=== PATIENT | female | born 1990 | race Caucasian/White ===

== ENCOUNTER 2020-08-08 04:55 | Inpatient (IN) | payer MEDICAID ==
[2020-08-08] MEDS ORDERED: Methylergonovine 0.2 MG/1 ML Amp IM PRN (05:00)
[2020-08-08] MEDS ORDERED: Nalbuphine 10 MG/1 ML Vial IVPUSH PRN (05:00)
[2020-08-08] MEDS ORDERED: Sodium Chloride 0.9% 10 ML Syringe FLUSH PRN (05:00)
[2020-08-08] MEDS ORDERED: Tranexamic Acid 1,000 MG in Sodium Chloride 0.9% 100 ML IV PRN ×2 (05:00→20:57)
[2020-08-08] MEDS ORDERED: Carboprost Tromethamine 250 MCG/1 ML Amp IM PRN ×2 (05:00→20:57)
[2020-08-08] MEDS ORDERED: Terbutaline 1 MG/ML SDV SUBCUT PRN (05:00)
[2020-08-08] MEDS ORDERED: Ondansetron 4 MG Tab.DIS PO PRN (05:00)
[2020-08-08] MEDS ORDERED: Sodium Chloride 0.9% 2.5 ML Syringe FLUSH PRN (05:00)
[2020-08-08] MEDS ORDERED: Misoprostol 200 MCG Tab PO PRN (05:00)
[2020-08-08] MEDS ORDERED: Sodium Chloride 0.9% 10 ML SDV IV PRN (05:00)
[2020-08-08] MEDS ORDERED: Lidocaine 1% 50 ML MDV INJECT PRN (05:00)
[2020-08-08] MEDS ORDERED: Water For Irrigation,Sterile 1,000 ML Container IRR PRN (05:00)
[2020-08-08] MEDS ORDERED: Oxytocin/0.9 % Sodium Chloride 30 UNIT/500 ML BAG IV SCH ×2 (05:00)
[2020-08-08] MEDS: Lactated Ringers 1,000 ML IV SCH ×3 (06:00→15:42)
[2020-08-08] MEDS ORDERED: Butorphanol 1 MG/ML SDV IVPUSH PRN (13:30)
[2020-08-08] MEDS ORDERED: Ropivacaine HCl/PF 100 ML ONE (15:19)
[2020-08-08] MEDS ORDERED: fentaNYL 100 MCG/2 ML SDV ONE (15:19)
--- NOTE | 2020-08-08 15:40 | PCM.PREANE ---
Preanesthetic Assessment - Anesthesia/Transfusion/Family Hx Anesthesia History: Prior Anesthesia Without Reaction Family History of Anesthesia Reaction: No Transfusion History: No Prior Transfusion(s) - Physical Assessment NPO Status Date: 08/08/20 NPO Status Time: 12:00 Height: 1.65 m Weight: 107.048 kg ASA Class: 2 - Lab Values: Laboratory Last Values WBC 12.84 K/uL (4.0-11.0) H 08/08/20 05:30 RBC 4.36 M/uL (4.30-5.90) 08/08/20 05:30 Hgb 13.1 g/dL (12.0-16.0) 08/08/20 05:30 Hct 39.0 % (36.0-46.0) 08/08/20 05:30 MCV 89.4 fL (80.0-98.0) 08/08/20 05:30 MCH 30.0 pg (27.0-32.0) 08/08/20 05:30 MCHC 33.6 g/dL (31.0-37.0) 08/08/20 05:30 RDW Std Deviation 42.9 fl (28.0-62.0) 08/08/20 05:30 RDW Coeff of Teresa 13 % (11.0-15.0) 08/08/20 05:30 Plt Count 321 K/uL (150-400) 08/08/20 05:30 MPV 10.20 fL (7.40-12.00) 08/08/20 05:30 Nucleated RBC % 0.0 /100WBC 08/08/20 05:30 Nucleated RBCs # 0 K/uL 08/08/20 05:30 Blood Type O POSITIVE 08/08/20 05:30 Antibody Screen NEGATIVE 08/08/20 05:30 - Allergies Allergies/Adverse Reactions: Allergies Allergy/AdvReac Type Severity Reaction Status Date / Time bee pollen Allergy Swelling Verified 08/01/20 14:47 - Acknowledgements Anesthesia Type Planned: Epidural Pt an Appropriate Candidate for the Planned Anesthesia: Yes Alternatives and Risks of Anesthesia Discussed w Pt/Guardian: Yes Pt/Guardian Understands and Agrees with Anesthesia Plan: Yes PreAnesthesia Questionnaire Cardiovascular History: Reports: Hypertension, Other (See Below) Other Cardiovascular History: Hypertension with Respiratory History: Reports: Sleep Apnea Other Respiratory History: Undiagnosed Sleep Apnea SLAT TWISTER History: Reports: , Other (See Below) Other OB/BYN History: Leep procedure 2017 Neurological History: Reports: Migraines Psychiatric History: Reports: Anxiety, Depression, OCD Endocrine/Metabolic History: Reports: Obesity/BMI 30+ Hematologic History: Reports: Anemia Oncologic (Cancer) History: Reports: Cervix, Other (See Below) Other Oncologic History: "precancerous cervical cancer" - Infectious Disease History Infectious Disease History: Reports: Chicken Pox, Human Papilloma Virus (HPV) - Past Surgical History Cardiovascular Surgical History: Reports: None Respiratory Surgical History: Reports: None Endocrine Surgical History: Reports: None Neurological Surgical History: Reports: None Oncologic Surgical History: Reports: Other (See Below) Other Oncologic Surgeries/Procedures: Leep procedure 2017 - SUBSTANCE USE Tobacco Use Status *Q: Never Tobacco User Second Hand Smoke Exposure: No Recreational Drug Use History: No - HOME MEDS Home Medications: Home Meds Calcium Carbonate [Tums] 500 mg PO 07/24/20 [History] ursodioL [Ursodiol] 300 mg PO 07/24/20 [History] Pnv No.95/Ferrous Fum/Folic AC [ Tablet] 1 tab PO DAILY 08/01/20 [History] - CURRENT (IN HOUSE) MEDS Current Meds: Current Medications Butorphanol Tartrate (Stadol) 1 mg IVPUSH Q1H PRN PRN Reason: Pain Last Admin: 08/08/20 13:44 Dose: 1 mg Documented by: Carboprost Tromethamine (Hemabate Ds) 250 mcg IM ASDIRECTED PRN PRN Reason: Post Hemorrhage Oxytocin/Sodium Chloride (Oxytocin 30 Unit/500 Ml-Ns) 30 unit in 500 mls @ 999 mls/hr IV TITRATE AKBAR Tranexamic Acid 1,000 mg/ (Sodium Chloride) 110 mls @ 660 mls/hr IV ONETIME PRN PRN Reason: Bleeding Oxytocin/Sodium Chloride (Oxytocin 30 Unit/500 Ml-Ns) 30 unit in 500 mls @ 2 mls/hr IV TITRATE AKBAR; Protocol Last Titration: 08/08/20 15:22 Dose: 20 munits/min, 20 mls/hr Documented by: Lactated Ringer's (Ringers, Lactated) 1,000 mls @ 150 mls/hr IV ASDIRECTED AKBAR Last Infusion: 08/08/20 15:00 Dose: 999 mls/hr Documented by: Lidocaine HCl (Xylocaine 1%) 50 ml INJECT ONETIME PRN PRN Reason: Laceration repair Methylergonovine Maleate (Methergine) 0.2 mg IM ASDIRECTED PRN PRN Reason: Post Hemorrhage Misoprostol (Cytotec) 200 mcg PO ONETIME PRN PRN Reason: Post Hemorrhage Nalbuphine HCl (Nubain) 10 mg IVPUSH Q1H PRN PRN Reason: Pain (severe 7-10) Ondansetron HCl (Zofran Odt) 4 mg PO Q4H PRN PRN Reason: Nausea/Vomiting Sodium Chloride (Saline Flush) 10 ml FLUSH ASDIRECTED PRN PRN Reason: Keep Vein Open Sodium Chloride (Saline Flush) 2.5 ml FLUSH ASDIRECTED PRN PRN Reason: Keep Vein Open Sodium Chloride (Normal Saline) 10 ml IV ASDIRECTED PRN PRN Reason: IV Use Sterile Water (Sterile Water For Irrigation) 1,000 ml IRR ASDIRECTED PRN PRN Reason: delivery Terbutaline Sulfate (Brethine) 0.25 mg SUBCUT ASDIRECTED PRN PRN Reason: Tacysystole Discontinued Medications Fentanyl (Sublimaze) Confirm Administered Dose 100 mcg .ROUTE .STK-MED ONE Stop: 08/08/20 15:20 Ropivacaine (Naropin 0.2%) Confirm Administered Dose 100 mls @ as directed .ROUTE .STK-MED ONE Stop: 08/08/20 15:20
--- NOTE | 2020-08-08 15:43 | PCM.PRNOTE ---
- Free Text/Narrative Note: Anes NOte Patient requests epidural for L&D. Sitting position, level L3-L4 midline approach. Sterile technique. Chloraprep scrub to lumbar area. Sterile fenestrated drape applied. Epidural space easily acheived single attempt using DARRIN technique. DARRIN at 4 cm. Cath threaded 5 cm with ease. Cath secured with sterile clear adhesive dressing. 1534 Test 3 cc 1.5% lido with epi negative. 1537 LOad 10 cc 0.2% ropivicaine with 1 mcg cc fentanyl in slow divided doses 1543 Pump started wtih 90 cc same solution. Rate is 8 cc hr wiht 6 cc q 20 min prn bolus. Tomeka well. Time with patient [id number] Etienne Gordon CRNA
--- NOTE | 2020-08-08 20:55 | PCM.DEL ---
L & D Note - General Info Date of Service: 08/08/20 Mother's Due Date: 08/29/20 - Delivery Note Labor: Induced by ARM, Induced by Oxytocin Delivery Outcome: Livebirth Infant Delivery Method: Spontaneous Vaginal Delivery-Single Infant Delivery Mode: Spontaneous Presentation: Right Occiput Anterior (EMMA) Nuchal Cord: None Prep: Other Anesthesia Type: Epidural Amniotic Fluid Description: Clear Laceration: 2nd Degree Suture type: Vicryl Suture size: 3-0 Placenta: Intact, Spontaneous Cord: 3 Vessels Estimated Blood Loss: 400 Resuscitation Needed: No Score 1 min: 8 Score 5 min: 9 - General Info Date of Service: 08/08/20 - Patient Data Weight - Most Recent: 107.048 kg Lab Results Last 24 Hours: Laboratory Results - last 24 hr 08/08/20 08/08/20 Range/Units 05:30 05:30 WBC 12.84 H (4.0-11.0) K/uL RBC 4.36 (4.30-5.90) M/uL Hgb 13.1 (12.0-16.0) g/dL Hct 39.0 (36.0-46.0) % MCV 89.4 (80.0-98.0) fL MCH 30.0 (27.0-32.0) pg MCHC 33.6 (31.0-37.0) g/dL RDW Std Deviation 42.9 (28.0-62.0) fl RDW Coeff of Teresa 13 (11.0-15.0) % Plt Count 321 (150-400) K/uL MPV 10.20 (7.40-12.00) fL Nucleated RBC % 0.0 /100WBC Nucleated RBCs # 0 K/uL Blood Type O POSITIVE Antibody Screen NEGATIVE Med Orders - Current: Current Medications Butorphanol Tartrate (Stadol) 1 mg IVPUSH Q1H PRN PRN Reason: Pain Last Admin: 08/08/20 13:44 Dose: 1 mg Documented by: Carboprost Tromethamine (Hemabate Ds) 250 mcg IM ASDIRECTED PRN PRN Reason: Post Hemorrhage Oxytocin/Sodium Chloride (Oxytocin 30 Unit/500 Ml-Ns) 30 unit in 500 mls @ 999 mls/hr IV TITRATE AKBAR Tranexamic Acid 1,000 mg/ (Sodium Chloride) 110 mls @ 660 mls/hr IV ONETIME PRN PRN Reason: Bleeding Oxytocin/Sodium Chloride (Oxytocin 30 Unit/500 Ml-Ns) 30 unit in 500 mls @ 2 mls/hr IV TITRATE [facility]; Protocol Last Titration: 08/08/20 17:00 Dose: 22 munits/min, 22 mls/hr Documented by: Lactated Ringer's (Ringers, Lactated) 1,000 mls @ 150 mls/hr IV ASDIRECTED AKBAR Last Admin: 08/08/20 15:42 Dose: 150 mls/hr Documented by: Lidocaine HCl (Xylocaine 1%) 50 ml INJECT ONETIME PRN PRN Reason: Laceration repair Methylergonovine Maleate (Methergine) 0.2 mg IM ASDIRECTED PRN PRN Reason: Post Hemorrhage Misoprostol (Cytotec) 200 mcg PO ONETIME PRN PRN Reason: Post Hemorrhage Nalbuphine HCl (Nubain) 10 mg IVPUSH Q1H PRN PRN Reason: Pain (severe 7-10) Ondansetron HCl (Zofran Odt) 4 mg PO Q4H PRN PRN Reason: Nausea/Vomiting Sodium Chloride (Saline Flush) 10 ml FLUSH ASDIRECTED PRN PRN Reason: Keep Vein Open Sodium Chloride (Saline Flush) 2.5 ml FLUSH ASDIRECTED PRN PRN Reason: Keep Vein Open Sodium Chloride (Normal Saline) 10 ml IV ASDIRECTED PRN PRN Reason: IV Use Sterile Water (Sterile Water For Irrigation) 1,000 ml IRR ASDIRECTED PRN PRN Reason: delivery Terbutaline Sulfate (Brethine) 0.25 mg SUBCUT ASDIRECTED PRN PRN Reason: Tacysystole Discontinued Medications Fentanyl (Sublimaze) Confirm Administered Dose 100 mcg .ROUTE .STK-MED ONE Stop: 08/08/20 15:20 Last Admin: 08/08/20 19:15 Dose: Not Given Documented by: Ropivacaine (Naropin 0.2%) Confirm Administered Dose 100 mls @ as directed .ROUTE .STK-MED ONE Stop: 08/08/20 15:20 Last Admin: 08/08/20 19:15 Dose: Not Given Documented by: - Problem List & Annotations (1) Gestational hypertension without significant proteinuria, affecting childbirth SNOMED Code(s): 39019196, 851470938 Code(s): O13.4 - GESTATNL HTN WITHOUT SIGNIFICANT PROTEIN, COMP CHILDBIRTH Status: Acute Current Visit: Yes - Problem List Review Problem List Initiated/Reviewed/Updated: Yes
[2020-08-08] MEDS ORDERED: Acetaminophen 500 MG Tab PO PRN ×2 (20:57)
[2020-08-08] MEDS ORDERED: Bisacodyl 10 MG Supp RECTAL PRN (20:57)
[2020-08-08] MEDS ORDERED: Witch Hazel Medicated Pads 40/Jar TOP PRN (20:57)
[2020-08-08] MEDS ORDERED: oxyCODONE 5 MG Tab PO PRN (20:57)
[2020-08-08] MEDS ORDERED: Docusate Sodium 100 MG Cap PO PRN (20:57)
[2020-08-08] MEDS ORDERED: Benzocaine/Menthol 20%-0.5% Spray 78 GM Cannister TOP PRN (20:57)
[2020-08-08] MEDS ORDERED: Ibuprofen 400 MG Tab PO PRN (20:57)
[2020-08-08] MEDS ORDERED: Lanolin 100% Cream 7 GM Tube TOP PRN (20:57)
--- NOTE | 2020-08-09 01:49 | OR ---
SURGEON: Tarsha Ramsey M.D. DATE OF PROCEDURE: 08/08/2020 PREOPERATIVE DIAGNOSES: 1. A 37-week intrauterine . 2. Gestational hypertension. POSTOPERATIVE DIAGNOSES: 1. A 37-week intrauterine . 2. Gestational hypertension. PROCEDURES: 1. Pitocin induction of labor with artificial rupture of membranes. 2. Term spontaneous vaginal delivery. 3. Repair of a second-degree laceration. PRIMARY SURGEON: Tarsha Ramsey M.D. ANESTHESIA: Epidural. ESTIMATED BLOOD LOSS: 400 mL. FINDINGS: Liveborn female, scores 8 and 9, weight is pending at the time of dictation. Placenta spontaneous, Schultze intact, with 3 vessels, with a note made of an accessory lobe of the placenta. COMPLICATIONS: None known. Mother and baby are in LDR in good condition. BRIEF HISTORY: This is a 29-year-old female, G1, P0; presents at 37 weeks' gestation for induction of labor due to elevated blood pressures at term. She was initially 3 to 4 cm dilated. She was started on Pitocin. Artificial rupture of membranes was performed. She was known to be group B strep negative. She received an epidural for pain control, and she progressed to complete. DESCRIPTION OF PROCEDURE: With the patient in dorsal lithotomy position, the patient pushed over a 45- minute time period to 5+ station, at which time the head was delivered spontaneously and atraumatically over the perineum with support with subsequent delivery of the 's shoulders and body without any difficulty. The infant was bulb suctioned by nose and mouth, and after the cord had ceased to pulsate, it was doubly clamped and cut. The infant was handed to the mother in the presence of the nurse attending the delivery. The infant is a liveborn female, scores of 8 and 9, weight is pending. Cord blood was collected for cord ABGs as well as routine cord blood sampling. Pitocin was initiated after delivery of the infant to assist with delivery of the placenta, which was delivered spontaneously, Schultze intact, with 3 vessels, with note made of an accessory lobe. Upon inspection of the pelvis and perineum, there were no periurethral, vaginal sidewall, cervical, or rectal lacerations. There was a small second-degree perineal laceration that was repaired with a running locked suture of 3-0 Vicryl for the vaginal mucosa, a deep running suture of the same for the perineum, and a subcuticular suture of the same for the skin. Final sponge, needle, and instrument counts were correct. There were no known complications. Mother and baby are in LDR in good condition. ANITHA CHU /[id number]
[2020-08-09] MEDS: Ibuprofen 800 MG Tab PO PRN ×2 (02:59→20:53)
--- NOTE | 2020-08-09 07:30 | PCM48HPAN ---
Post Anesthesia Note - EVALUATION WITHIN 48HRS OF ANESTHETIC Vital Signs in Normal Range: Yes Patient Participated in Evaluation: Yes Respiratory Function Stable: Yes Airway Patent: Yes Cardiovascular Function Stable: Yes Hydration Status Stable: Yes Pain Control Satisfactory: Yes Nausea and Vomiting Control Satisfactory: Yes Mental Status Recovered: Yes Vital Signs: Last Vital Signs Temp 36.7 C 08/09/20 04:49 Pulse 86 08/09/20 04:49 Resp 16 08/09/20 04:49 BP 130/79 08/09/20 04:49 Pulse Ox 97 08/09/20 04:49
[2020-08-09] MEDS ORDERED: Furosemide 20 MG/2 ML VIAL IVPUSH ONE (11:26)
--- NOTE | 2020-08-09 11:52 | PCM.PNPP ---
- General Info Date of Service: 08/09/20 Subjective Update: Denies headache, visual changes or other symptoms Functional Status: Reports: Pain Controlled, Tolerating Diet, Ambulating, Urinating - Review of Systems General: Reports: No Symptoms HEENT: Reports: No Symptoms Pulmonary: Reports: No Symptoms Cardiovascular: Reports: No Symptoms Gastrointestinal: Reports: No Symptoms Genitourinary: Reports: No Symptoms Musculoskeletal: Reports: No Symptoms Skin: Reports: No Symptoms Neurological: Reports: No Symptoms Psychiatric: Reports: No Symptoms - Patient Data Vital Signs - Most Recent: Last Vital Signs Temp 36.7 C 08/09/20 07:34 Pulse 88 08/09/20 07:34 Resp 17 08/09/20 07:34 BP 133/87 08/09/20 08:43 Pulse Ox 98 08/09/20 07:34 Weight - Most Recent: 107.048 kg Lab Results - Last 24 Hours: Laboratory Results - last 24 hr 08/08/20 08/09/20 Range/Units 20:35 05:08 Hgb 11.2 L (12.0-16.0) g/dL Hct 34.4 L (36.0-46.0) % Cord ABG pH 7.196 (7.18-7.38) Cord ABG Base Excess -8 (-10--2) Cord VBG pH 7.274 (7.25-7.45) Cord VBG Base Excess -9 (-10--2) Med Orders - Current: Current Medications Acetaminophen (Tylenol Extra Strength) 500 mg PO Q4H PRN PRN Reason: Pain Acetaminophen (Tylenol Extra Strength) 1,000 mg PO Q4H PRN PRN Reason: Pain Benzocaine/Menthol (Dermoplast Pain Relief 20%-0.5% [place]ce) 78 gm TOP ASDIRECTED PRN PRN Reason: Perineal Comfort Measure Last Admin: 08/08/20 22:31 Dose: 78 gm Documented by: Bisacodyl (Dulcolax) 10 mg RECTAL ONETIME PRN PRN Reason: Constipation Carboprost Tromethamine (Hemabate Ds) 250 mcg IM ASDIRECTED PRN PRN Reason: Excessive vaginal bleeding Docusate Sodium (Colace) 100 mg PO BID PRN PRN Reason: Constipation Emollient Ointment (Lansinoh Hpa) 0 gm TOP ASDIRECTED PRN PRN Reason: Sore Nipples Furosemide (Lasix) 10 mg IVPUSH NOW ONE Stop: 08/09/20 11:27 Tranexamic Acid 1,000 mg/ (Sodium Chloride) 110 mls @ 660 mls/hr IV ONETIME PRN PRN Reason: Bleeding Ibuprofen (Motrin) 400 mg PO Q4H PRN PRN Reason: Pain Ibuprofen (Motrin) 800 mg PO Q6H PRN PRN Reason: Pain Last Admin: 08/09/20 02:59 Dose: 800 mg Documented by: Oxycodone HCl (Oxycodone) 5 mg PO Q2H PRN PRN Reason: Pain Witch Jose (Tucks) 1 pad TOP ASDIRECTED PRN PRN Reason: comfort care Last Admin: 08/08/20 22:31 Dose: 1 tub Documented by: Discontinued Medications Butorphanol Tartrate (Stadol) 1 mg IVPUSH Q1H PRN PRN Reason: Pain Last Admin: 08/08/20 13:44 Dose: 1 mg Documented by: Carboprost Tromethamine (Hemabate Ds) 250 mcg IM ASDIRECTED PRN PRN Reason: Post Hemorrhage Fentanyl (Sublimaze) Confirm Administered Dose 100 mcg .ROUTE .STK-MED ONE Stop: 08/08/20 15:20 Last Admin: 08/08/20 19:15 Dose: Not Given Documented by: Oxytocin/Sodium Chloride (Oxytocin 30 Unit/500 Ml-Ns) 30 unit in 500 mls @ 999 mls/hr IV TITRATE AKBAR Last Admin: 08/08/20 20:51 Dose: 999 mls/hr Documented by: Tranexamic Acid 1,000 mg/ (Sodium Chloride) 110 mls @ 660 mls/hr IV ONETIME PRN PRN Reason: Bleeding Oxytocin/Sodium Chloride (Oxytocin 30 Unit/500 Ml-Ns) 30 unit in 500 mls @ 2 mls/hr IV TITRATE AKBAR; Protocol Last Titration: 08/08/20 20:29 Dose: 999 munits/min, 999 mls/hr Documented by: Lactated Ringer's (Ringers, Lactated) 1,000 mls @ 150 mls/hr IV ASDIRECTED AKBAR Last Admin: 08/08/20 15:42 Dose: 150 mls/hr Documented by: Ropivacaine (Naropin 0.2%) Confirm Administered Dose 100 mls @ as directed .ROUTE .STK-MED ONE Stop: 08/08/20 15:20 Last Admin: 08/08/20 19:15 Dose: Not Given Documented by: Lidocaine HCl (Xylocaine 1%) 50 ml INJECT ONETIME PRN PRN Reason: Laceration repair Methylergonovine Maleate (Methergine) 0.2 mg IM ASDIRECTED PRN PRN Reason: Post Hemorrhage Misoprostol (Cytotec) 200 mcg PO ONETIME PRN PRN Reason: Post Hemorrhage Nalbuphine HCl (Nubain) 10 mg IVPUSH Q1H PRN PRN Reason: Pain (severe 7-10) Ondansetron HCl (Zofran Odt) 4 mg PO Q4H PRN PRN Reason: Nausea/Vomiting Sodium Chloride (Saline Flush) 10 ml FLUSH ASDIRECTED PRN PRN Reason: Keep Vein Open Sodium Chloride (Saline Flush) 2.5 ml FLUSH ASDIRECTED PRN PRN Reason: Keep Vein Open Sodium Chloride (Normal Saline) 10 ml IV ASDIRECTED PRN PRN Reason: IV Use Sterile Water (Sterile Water For Irrigation) 1,000 ml IRR ASDIRECTED PRN PRN Reason: delivery Terbutaline Sulfate (Brethine) 0.25 mg SUBCUT ASDIRECTED PRN PRN Reason: Tacysystole - Interaction Disposition, : [place] in Room with Family Infant Interaction: Holding Infant Infant Feeding: Breastfed ; Nursed Well Support Person: Significant Other - Recovery Exam Fundal Tone: Firm Fundal Level: 1 Fingerbreadths Below Umbilicus Fundal Placement: Midline Lochia Amount: Scant, Small Lochia Color: Rubra/Red Perineum Description: Other (see below) Other Perinuem Description: 2nd degree laceration. Episiotomy/Laceration: Approximated Bladder Status: Voiding Urinary Elimination: Voided - Exam General: Alert, Oriented Neck: Supple Lungs: Normal Respiratory Effort GI/Abdominal Exam: Soft, Non-Tender, No Distention Extremities: Non-Tender, Normal Capillary Refill. No: No Pedal Edema (3+ equal bilateral) Wound/Incisions: Healing Well Psy/Mental Status: Alert, Normal Affect, Normal Mood - Problem List & Annotations (1) Gestational hypertension without significant proteinuria, affecting childbirth SNOMED Code(s): 05930291, [id number] Code(s): O13.4 - GESTATNL HTN WITHOUT SIGNIFICANT PROTEIN, COMP CHILDBIRTH Status: Acute Current Visit: Yes - Problem List Review Problem List Initiated/Reviewed/Updated: Yes - My Orders Last 24 Hours: My Active Orders 08/08/20 Dinner Regular Diet [DIET] 08/08/20 20:57 Patient Status [ADT] Routine May Shower [RC] ASDIRECTED Up ad Britt [RC] ASDIRECTED Vital Signs [RC] PER UNIT ROUTINE Acetaminophen [Tylenol Extra Strength] 1,000 mg PO Q4H PRN Acetaminophen [Tylenol Extra Strength] 500 mg PO Q4H PRN Benzocaine/Menthol [Dermoplast Pain Relief 20%-0.5% Fordyce] 78 gm TOP ASDIRECTED PRN Carboprost Tromethamine [Hemabate DS] 250 mcg IM ASDIRECTED PRN Docusate Sodium [Colace] 100 mg PO BID PRN Ibuprofen [Motrin] 400 mg PO Q4H PRN Ibuprofen [Motrin] 800 mg PO Q6H PRN Lanolin [Lansinoh HPA] See Dose Instructions TOP ASDIRECTED PRN Tranexamic Acid [Cyklokapron] 1,000 mg Sodium Chloride 0.9% [Normal Saline] 100 ml IV ONETIME bisacodyL [Dulcolax] 10 mg RECTAL ONETIME PRN oxyCODONE 5 mg PO Q2H PRN witch Jose [Tucks] 1 pad TOP ASDIRECTED PRN Assess Lochia [WOMSER] Per Unit Routine Assess Uterine Involution [WOMSER] Per Unit Routine Perineal Care [OM.PC] Per Unit Routine Peripheral IV Discontinue [OM.PC] Routine Resuscitation Status Routine 08/09/20 11:26 Furosemide [Lasix] 10 mg IVPUSH NOW ONE - Assessment Assessment:: day #1 after , stable minimal lochia. 3+ pedal edema bilaterally, borderline BP, will give single dose of lasix. Consider labetalol if BP remain elevated, parameters provided to nurse.
[2020-08-09] MEDS ORDERED: Furosemide 20 MG in Sodium Chloride 0.9% 50 ML IV ONE (12:00)
--- NOTE | 2020-08-10 09:09 | PCM.PNPP ---
- General Info Date of Service: 08/10/20 Subjective Update: PPD#2 after , BP improved, now somewhat worsened, swelling improved significantly, minimal lochia, denies headache or visual changes. Planning to go home today. Functional Status: Reports: Pain Controlled - Review of Systems General: Reports: No Symptoms HEENT: Reports: No Symptoms Pulmonary: Reports: No Symptoms Cardiovascular: Reports: Edema Gastrointestinal: Reports: No Symptoms Genitourinary: Reports: No Symptoms Musculoskeletal: Reports: No Symptoms Skin: Reports: No Symptoms Neurological: Reports: No Symptoms Psychiatric: Reports: No Symptoms - General Info Date of Service: 08/10/20 - Patient Data Vital Signs - Most Recent: Last Vital Signs Temp 36.3 C 08/10/20 06:07 Pulse 90 08/10/20 06:07 Resp 16 08/10/20 06:07 BP 142/93 H 08/10/20 06:07 Pulse Ox 98 08/10/20 06:07 Weight - Most Recent: 107.048 kg Med Orders - Current: Current Medications Acetaminophen (Tylenol Extra Strength) 500 mg PO Q4H PRN PRN Reason: Pain Acetaminophen (Tylenol Extra Strength) 1,000 mg PO Q4H PRN PRN Reason: Pain Benzocaine/Menthol (Dermoplast Pain Relief 20%-0.5% [place]) 78 gm TOP ASDIRECTED PRN PRN Reason: Perineal Comfort Measure Last Admin: 08/08/20 22:31 Dose: 78 gm Documented by: Bisacodyl (Dulcolax) 10 mg RECTAL ONETIME PRN PRN Reason: Constipation Carboprost Tromethamine (Hemabate Ds) 250 mcg IM ASDIRECTED PRN PRN Reason: Excessive vaginal bleeding Docusate Sodium (Colace) 100 mg PO BID PRN PRN Reason: Constipation Emollient Ointment (Lansinoh Hpa) 0 gm TOP ASDIRECTED PRN PRN Reason: Sore Nipples Tranexamic Acid 1,000 mg/ (Sodium Chloride) 110 mls @ 660 mls/hr IV ONETIME PRN PRN Reason: Bleeding Ibuprofen (Motrin) 400 mg PO Q4H PRN PRN Reason: Pain Ibuprofen (Motrin) 800 mg PO Q6H PRN PRN Reason: Pain Last Admin: 08/09/20 20:53 Dose: 800 mg Documented by: Labetalol HCl (Normodyne) 100 mg PO BID AKBAR Oxycodone HCl (Oxycodone) 5 mg PO Q2H PRN PRN Reason: Pain Witch Jacqueline (Tucks) 1 pad TOP ASDIRECTED PRN PRN Reason: comfort care Last Admin: 08/08/20 22:31 Dose: 1 tub Documented by: Discontinued Medications Butorphanol Tartrate (Stadol) 1 mg IVPUSH Q1H PRN PRN Reason: Pain Last Admin: 08/08/20 13:44 Dose: 1 mg Documented by: Carboprost Tromethamine (Hemabate Ds) 250 mcg IM ASDIRECTED PRN PRN Reason: Post Hemorrhage Fentanyl (Sublimaze) Confirm Administered Dose 100 mcg .ROUTE .STK-MED ONE Stop: 08/08/20 15:20 Last Admin: 08/08/20 19:15 Dose: Not Given Documented by: Furosemide (Lasix) 10 mg IVPUSH NOW ONE Stop: 08/09/20 11:27 Last Admin: 08/09/20 16:43 Dose: Not Given Documented by: Oxytocin/Sodium Chloride (Oxytocin 30 Unit/500 Ml-Ns) 30 unit in 500 mls @ 999 mls/hr IV TITRATE AKBAR Last Admin: 08/08/20 20:51 Dose: 999 mls/hr Documented by: Tranexamic Acid 1,000 mg/ (Sodium Chloride) 110 mls @ 660 mls/hr IV ONETIME PRN PRN Reason: Bleeding Oxytocin/Sodium Chloride (Oxytocin 30 Unit/500 Ml-Ns) 30 unit in 500 mls @ 2 mls/hr IV TITRATE AKBAR; Protocol Last Titration: 08/08/20 20:29 Dose: 999 munits/min, 999 mls/hr Documented by: Lactated Ringer's (Ringers, Lactated) 1,000 mls @ 150 mls/hr IV ASDIRECTED AKBAR Last Admin: 08/08/20 15:42 Dose: 150 mls/hr Documented by: Ropivacaine (Naropin 0.2%) Confirm Administered Dose 100 mls @ as directed .ROUTE .STK-MED ONE Stop: 08/08/20 15:20 Last Admin: 08/08/20 19:15 Dose: Not Given Documented by: Furosemide 20 mg/ Sodium (Chloride) 52 mls @ 100 mls/hr IV ONETIME ONE Stop: 08/09/20 12:31 Last Admin: 08/09/20 12:37 Dose: 100 mls/hr Documented by: Lidocaine HCl (Xylocaine 1%) 50 ml INJECT ONETIME PRN PRN Reason: Laceration repair Methylergonovine Maleate (Methergine) 0.2 mg IM ASDIRECTED PRN PRN Reason: Post Hemorrhage Misoprostol (Cytotec) 200 mcg PO ONETIME PRN PRN Reason: Post Hemorrhage Nalbuphine HCl (Nubain) 10 mg IVPUSH Q1H PRN PRN Reason: Pain (severe 7-10) Ondansetron HCl (Zofran Odt) 4 mg PO Q4H PRN PRN Reason: Nausea/Vomiting Sodium Chloride (Saline Flush) 10 ml FLUSH ASDIRECTED PRN PRN Reason: Keep Vein Open Sodium Chloride (Saline Flush) 2.5 ml FLUSH ASDIRECTED PRN PRN Reason: Keep Vein Open Sodium Chloride (Normal Saline) 10 ml IV ASDIRECTED PRN PRN Reason: IV Use Sterile Water (Sterile Water For Irrigation) 1,000 ml IRR ASDIRECTED PRN PRN Reason: delivery Terbutaline Sulfate (Brethine) 0.25 mg SUBCUT ASDIRECTED PRN PRN Reason: Tacysystole - Interaction Infant Disposition, : [place] in Room with Family Infant Interaction: Holding Infant Infant Feeding: Breastfed Infant; Nursed Well Support Person: Significant Other - Recovery Exam Fundal Tone: Firm Fundal Level: 1 Fingerbreadths Below Umbilicus Fundal Placement: Midline Lochia Amount: Scant Lochia Color: Rubra/Red Perineum Description: Other (see below) Other Perinuem Description: 2nd degree laceration. Episiotomy/Laceration: Approximated Bladder Status: Voiding Urinary Elimination: Voided - Exam General: Alert, Oriented HEENT: Pupils Equal Lungs: Normal Respiratory Effort GI/Abdominal Exam: Soft, Non-Tender Extremities: Normal Inspection, Non-Tender. No: No Pedal Edema (2+ equal bilaterally) Skin: Warm, Dry, Intact Psy/Mental Status: Alert, Normal Affect, Normal Mood - Problem List & Annotations (1) Gestational hypertension without significant proteinuria, affecting childbirth SNOMED Code(s): 74882130, 443885800 Code(s): O13.4 - GESTATNL HTN WITHOUT SIGNIFICANT PROTEIN, COMP CHILDBIRTH Status: Acute Current Visit: Yes - Problem List Review Problem List Initiated/Reviewed/Updated: Yes - My Orders Last 24 Hours: My Active Orders 08/10/20 09:15 Labetalol [Normodyne] 100 mg PO BID - Assessment Assessment:: day #2 after , stable minimal lochia. BP still mildly elevated, denies symptoms. - Plan Plan:: Start labetalol, reassess BP after lunch, if improved, dismiss with follow up in 2-3 days. Discharge instructions reviewed.
[2020-08-10] MEDS ORDERED: Labetalol 100 MG Tab PO SCH (09:15)
[2020-08-10] MEDS ORDERED: Measles, Mumps & Rubella Vaccine 0.5 ML SDV SUBCUT ONE (13:53)
== END 2020-08-10 15:01 | disposition home or self-care (01) | DRG 807 ==
LOC: MW.OBCHECK 04:55 → MW.OB 04:56 → MW.OBCHECK 05:00 → OBSVTOIN 20:28 → MW.OB 22:42
PROVIDERS: ADMIT Obstetrics & Gynecology; ATTEND Obstetrics & Gynecology
PROC: 10E0XZZ Delivery of Products of Conception, External Approach (ICD-10-PCS; principal; 2020-08-08)
PROC: 0KQM0ZZ Repair Perineum Muscle, Open Approach (ICD-10-PCS; 2020-08-08)
PROC: 10907ZC Drainage of Amniotic Fluid, Therapeutic from Products of Conception, Via Natural or Artificial Opening (ICD-10-PCS; 2020-08-08)
PROC: 3E033VJ Introduction of Other Hormone into Peripheral Vein, Percutaneous Approach (ICD-10-PCS; 2020-08-08)
PROC: 3E0R3BZ Introduction of Anesthetic Agent into Spinal Canal, Percutaneous Approach (ICD-10-PCS; 2020-08-08)
PROC: 00HU33Z Insertion of Infusion Device into Spinal Canal, Percutaneous Approach (ICD-10-PCS; 2020-08-08)
DX: O13.4 Gestational [pregnancy-induced] hypertension without significant proteinuria, complicating childbirth (principal); Z37.0 Single live birth; Z3A.37 37 weeks gestation of pregnancy; O70.1 Second degree perineal laceration during delivery
CPT/HCPCS: 36415; 51702; 59025; 59409; 82803; 85014; 85018; 85027; 86592; 86850; 86900; 86901; 90471; 90707; A9270-GY; J0595; J1940; J2590; J7120

== ENCOUNTER 2021-01-05 09:23 | Emergency (ER) | payer BC, MEDICAID ==
[2021-01-05] MEDS ORDERED: Alum Hydrox/Mag Hydrox/Simeth 15 ML, Lidocaine 2% 5 ML PO ONE ×2 (09:57)
[2021-01-05] MEDS ORDERED: Dextrose 5%-Lactated Ringers 1,000 ML IV SCH (10:00)
[2021-01-05 11:20] LABS: BLOOD UREA NITROGEN,BUN 14 mg/dL (7.0-18.0); CARBON DIOXIDE,CO2 27.8 mmol/L (21.0-32.0); CHLORIDE,CL 104 mmol/L (98-107); GLUCOSE RANDOM 97 mg/dL (74-106); LIPASE 47 U/L (73-393); POTASSIUM,K 3.5 mmol/L (3.5-5.1); SODIUM,NA 139 mmol/L (136-145)
--- NOTE | 2021-01-05 11:33 | EDM.PDOC ---
ED HPI GENERAL MEDICAL PROBLEM - General Chief Complaint: Abdominal Pain Stated Complaint: NO BM FOR 2 DAYS Time Seen by Provider: 01/05/21 09:45 - History of Present Illness INITIAL COMMENTS - FREE TEXT/NARRATIVE: CHIEF COMPLAINT(S): Decreased urination HISTORY OF PRESENT ILLNESS: This is a 30-year-old woman without any past medical history who comes to the emergency department with a chief complaint of decreased urination. The patient states that symptoms 4 days ago she has been experiencing a stomach flu for which her and daughter both had. She states that she had approximately 14 hours of nausea, vomiting which is nonbloody nonbilious and diarrhea which was also nonbloody. She states that it improved and was able to tolerate food including peanut butter and jelly, cheese, juice, and water for approximately 48 hours now. She states that since that time she is having some abdominal pain throughout her abdomen which she describes as dull and sharp rated 5 out of 10. She states that it is sharp in her upper abdomen and dull in her lower abdomen without any radiation of this pain. She denies any hematuria, dysuria or pain with defecation. She denies any melena or hematochezia. She states that the diarrhea has improved but it has been sometime since she had a bowel movement. She states that she was concerned because this morning she was unable to urinate. She states that she felt the need to urinate but did not urinate. She states that she was able to urinate when getting to the emergency department. She states that because she was unable to urinate she was concerned about a urinary tract infection so she drank cranberry juice and took Azo. In regards to the abdominal pain she denies any aggravating factors or relieving factors. She denies any fevers, chills, chest pain, shortness of breath. She states that she still feels dehydrated. REVIEW OF SYSTEMS: Constitutional: Denies fever, chills. Eyes: Denies eye pain Ears, Nose, Mouth, & Throat: Denies earache Cardiovascular: Denies chest pain Respiratory: Denies shortness of breath Gastrointestinal: Positive for diffuse abdominal pain. Denies any current nausea, vomiting, diarrhea, hematochezia, melena or hematemesis Genitourinary: Positive for increased urgency and decreased urination. Denies hematuria, vaginal bleeding, vaginal discharge Skin:Denies a rash MSK: Denies joint pain Neurological: Denies blurred vision Psychiatric: Denies depression PAST MEDICAL HISTORY: As per history of present illness and as reviewed below otherwise noncontributory. SURGICAL HISTORY: As per history of present illness and as reviewed below otherwise noncontributory. LMP: 3 days ago SOCIAL HISTORY: As per history of present illness and as reviewed below otherwise noncontributory. FAMILY HISTORY: As per history of present illness and as reviewed below otherwise noncontributory. EXAMINATION OF ORGAN SYSTEMS/BODY AREAS: Constitutional: Blood pressure was 129/92, heart rate 104, respiratory rate 18 with an oxygen saturation 96% on room air. Temperature 36.5 General: Overall well-appearing woman who is in no acute distress Psychiatric: Appropriate mood and affect. Eyes: No scleral icterus or conjunctival erythema ENMT: Mildly dry mucous membranes. No pharyngeal erythema. Cardiovascular: Regular, rate, and rhythm. No gallops, murmurs, or rubs. Bilateral upper extremity pulses symmetric and intact. No peripheral edema. No JVD. Respiratory: Lungs clear to auscultation bilaterally. No wheezes, rales, or rhonchi. Gastrointestinal: Soft, nondistended, tenderness to palpation in the epigastric and left upper quadrant. No rebound or guarding. Normoactive bowel sounds Genitourinary: No suprapubic tenderness no CVA tenderness. Musculoskeletal: Normal range of motion. Skin: No lesions or abrasions. Neurological: Alert, GCS 15 MEDICAL DECISION MAKING AND COURSE IN THE ED WITH INTERPRETATION/REVIEW OF DIAGNOSTIC STUDIES: This is a 30-year-old man without any significant past medical history who comes to the emergency department with continued abdominal pain and decreased urination after a recent stomach virus who appears mildly dehydrated, is tachycardic and has tenderness palpation in the epigastric region. I do believe this is likely secondary to gastritis from the vomiting and she may be experiencing some dehydration from the viral gastroenteritis she experienced. However we will obtain a urinalysis to evaluate for any urinary tract infection given her concern. Will also obtain CBC and CMP and a lipase. We will provide the patient with 1 L of D5 LR and reevaluate. Laboratory: CBC is unremarkable. CMP is unremarkable. Lipase is normal. Urinalysis was a clean catch and was negative for leukocyte esterase, negative for nitrites, and moderate for blood. Interpretation: Hematuria likely secondary to menses On reevaluation, the patient stated that her pain had significantly improved and she feels better after the IV fluids. I did discuss with her at this time that I do believe that given that she has not been eating a normal diet given the recent nausea, vomiting, diarrhea she likely does not have any stool to have a bowel movement. I did discuss with her that as time progresses and she returns to a normal diet she should return to normal bowel movements. I discussed with her that she does not have any kidney dysfunction and that she was able to urinate here's therefore I do not believe that she is having any issues with urination. She does not have any evidence of infection. I did discuss with her that her abdominal pain is likely secondary to gastritis versus ulcers. She is informing that she does have a history of ulcers. I discussed with her at this time that I like to provide her with famotidine to be used for the next 2 weeks and then follow-up with her primary care physician. She is to return for any new or worsening symptoms. She was amenable to discharge at this time and had no further questions. DISPOSITION: The patient was discharged home in stable condition. The patient will follow up with primary care physician within 1 week CONDITION: Fair PROCEDURES: None FINAL IMPRESSION(S)/DIAGNOSES: 1. Acute abdominal pain likely secondary to gastritis All Tavera M.D. abdominal Pain Score (Numeric/FACES): 2 - Related Data Allergies Allergy/AdvReac Type Severity Reaction Status Date / Time bee pollen Allergy Swelling Verified 01/05/21 09:37 Home Meds: Home Meds Famotidine [Pepcid] 40 mg PO DAILY #14 tablet 01/05/21 [Rx] Past Medical History Cardiovascular History: Reports: Hypertension, Other (See Below) Other Cardiovascular History: Hypertension with Respiratory History: Reports: Sleep Apnea Other Respiratory History: Undiagnosed Sleep Apnea QUALITY IMPROVEMENT CONSULTANT History: Reports: , Other (See Below) Other QUALITY IMPROVEMENT CONSULTANT History: Leep procedure 2017 Neurological History: Reports: Migraines Psychiatric History: Reports: Anxiety, Depression, OCD Endocrine/Metabolic History: Reports: Obesity/BMI 30+ Hematologic History: Reports: Anemia Oncologic (Cancer) History: Reports: Cervix, Other (See Below) Other Oncologic History: "precancerous cervical cancer" - Infectious Disease History Infectious Disease History: Reports: Chicken Pox, Human Papilloma Virus (HPV) - Past Surgical History Cardiovascular Surgical History: Reports: None Respiratory Surgical History: Reports: None Endocrine Surgical History: Reports: None Neurological Surgical History: Reports: None Oncologic Surgical History: Reports: Other (See Below) Other Oncologic Surgeries/Procedures: Leep procedure 2017 Social & Family History - Family History Cardiac: Reports: Heart Failure OBGYN: Reports: Endocrine/Metabolic: Reports: Diabetes, type II - Tobacco Use Tobacco Use Status *Q: Never Tobacco User - Caffeine Use Caffeine Use: Reports: Coffee, Energy Drinks, Soda, Tea - Recreational Drug Use Recreational Drug Use: No ED ROS GENERAL - Review of Systems Review Of Systems: See Below ED EXAM, GENERAL - Physical Exam Exam: See Below Course - Vital Signs Last Recorded V/S: Last Vital Signs Temp 36.6 C 01/05/21 12:25 Pulse 97 01/05/21 12:25 Resp 19 01/05/21 12:25 BP 126/86 01/05/21 12:25 Pulse Ox 97 01/05/21 12:25 - Orders/Labs/Meds Labs: Laboratory Tests 01/05/21 01/05/21 01/05/21 Range/Units 09:45 09:45 10:28 WBC 7.01 (4.0-11.0) K/uL RBC 4.94 (4.30-5.90) M/uL Hgb 14.4 (12.0-16.0) g/dL Hct 42.9 (36.0-46.0) % MCV 86.8 (80.0-98.0) fL MCH 29.1 (27.0-32.0) pg MCHC 33.6 (31.0-37.0) g/dL RDW Std Deviation 41.8 (28.0-62.0) fl RDW Coeff of Teresa 13 (11.0-15.0) % Plt Count 376 (150-400) K/uL MPV 9.20 (7.40-12.00) fL Neut % (Auto) 69.2 (48.0-80.0) % Lymph % (Auto) 21.1 (16.0-40.0) % Norton % (Auto) 7.3 (0.0-15.0) % Eos % (Auto) 2.1 (0.0-7.0) % Baso % (Auto) 0.3 (0.0-1.5) % Neut # (Auto) 4.9 (1.4-5.7) K/uL Lymph # (Auto) 1.5 (0.6-2.4) K/uL Norton # (Auto) 0.5 (0.0-0.8) K/uL Eos # (Auto) 0.2 (0.0-0.7) K/uL Baso # (Auto) 0.0 (0.0-0.1) K/uL Nucleated RBC % 0.0 /100WBC Nucleated RBCs # 0 K/uL Sodium (136-145) mmol/L Potassium (3.5-5.1) mmol/L Chloride (98-107) mmol/L Carbon Dioxide (21.0-32.0) mmol/L BUN (7.0-18.0) mg/dL Creatinine (0.6-1.0) mg/dL Est Cr Clr Drug Dosing mL/min Estimated GFR (MDRD) ml/min Glucose (74-106) mg/dL Calcium (8.5-10.1) mg/dL Total Bilirubin (0.2-1.0) mg/dL AST (15-37) IU/L ALT (14-63) IU/L Alkaline Phosphatase (46-116) U/L Total Protein (6.4-8.2) g/dL Albumin (3.4-5.0) g/dL Globulin (2.6-4.0) g/dL Albumin/Globulin Ratio (0.9-1.6) Lipase (73-393) U/L Urine Color YELLOW Urine Appearance CLEAR Urine pH 6.0 (5.0-8.0) Ur Specific Garfield <= 1.005 (1.001-1.035) Urine Protein NEGATIVE (NEGATIVE) mg/dL Urine Glucose (UA) NEGATIVE (NEGATIVE) mg/dL Urine Ketones NEGATIVE (NEGATIVE) mg/dL Urine Occult Blood MODERATE H (NEGATIVE) Urine Nitrite NEGATIVE (NEGATIVE) Urine Bilirubin NEGATIVE (NEGATIVE) Urine Urobilinogen 0.2 (<2.0) EU/dL Ur Leukocyte Esterase NEGATIVE (NEGATIVE) Urine RBC 2-5 (0-2/HPF) Urine WBC 0-1 (0-5/HPF) Ur Squamous Epith Cells MANY Urine Bacteria RARE (NEGATIVE) Urine HCG, Qual NEGATIVE (NEGATIVE) 01/05/21 Range/Units 10:28 WBC (4.0-11.0) K/uL RBC (4.30-5.90) M/uL Hgb (12.0-16.0) g/dL Hct (36.0-46.0) % MCV (80.0-98.0) fL MCH (27.0-32.0) pg MCHC (31.0-37.0) g/dL RDW Std Deviation (28.0-62.0) fl RDW Coeff of Teresa (11.0-15.0) % Plt Count (150-400) K/uL MPV (7.40-12.00) fL Neut % (Auto) (48.0-80.0) % Lymph % (Auto) (16.0-40.0) % Norton % (Auto) (0.0-15.0) % Eos % (Auto) (0.0-7.0) % Baso % (Auto) (0.0-1.5) % Neut # (Auto) (1.4-5.7) K/uL Lymph # (Auto) (0.6-2.4) K/uL Norton # (Auto) (0.0-0.8) K/uL Eos # (Auto) (0.0-0.7) K/uL Baso # (Auto) (0.0-0.1) K/uL Nucleated RBC % /100WBC Nucleated RBCs # K/uL Sodium 139 (136-145) mmol/L Potassium 3.5 (3.5-5.1) mmol/L Chloride 104 (98-107) mmol/L Carbon Dioxide 27.8 (21.0-32.0) mmol/L BUN 14 (7.0-18.0) mg/dL Creatinine 0.9 (0.6-1.0) mg/dL Est Cr Clr Drug Dosing 82.25 mL/min Estimated GFR (MDRD) > 60.0 ml/min Glucose 97 (74-106) mg/dL Calcium 8.5 (8.5-10.1) mg/dL Total Bilirubin 0.3 (0.2-1.0) mg/dL AST 22 (15-37) IU/L ALT 38 (14-63) IU/L Alkaline Phosphatase 113 (46-116) U/L Total Protein 8.1 (6.4-8.2) g/dL Albumin 3.6 (3.4-5.0) g/dL Globulin 4.5 H (2.6-4.0) g/dL Albumin/Globulin Ratio 0.8 L (0.9-1.6) Lipase 47 L (73-393) U/L Urine Color Urine Appearance Urine pH (5.0-8.0) Ur Specific [place] (1.001-1.035) Urine Protein (NEGATIVE) mg/dL Urine Glucose (UA) (NEGATIVE) mg/dL Urine Ketones (NEGATIVE) mg/dL Urine Occult Blood (NEGATIVE) Urine Nitrite (NEGATIVE) Urine Bilirubin (NEGATIVE) Urine Urobilinogen (<2.0) EU/dL Ur Leukocyte Esterase (NEGATIVE) Urine RBC (0-2/HPF) Urine WBC (0-5/HPF) Ur Squamous Epith Cells Urine Bacteria (NEGATIVE) Urine HCG, Qual (NEGATIVE) Meds: Medications Discontinued Medications Generic Name Dose Route Start Last Admin Trade Name Medardoq PRN Reason Stop Dose Admin Al Hydroxide/Mg Hydroxide 15 0 ml 01/05/21 09:57 01/05/21 10:22 ml/ Lidocaine HCl 5 ml PO 01/05/21 09:58 1 each ONETIME ONE Administration Dextrose/Lactated Ringer's 1,000 mls @ 999 mls/hr 01/05/21 10:00 01/05/21 10:19 Dextrose 5%-Lactated Ringers IV 999 mls/hr ASDIRECTED AKBAR Administration Departure - Departure Time of Disposition: 12:09 Disposition: Home, Self-Care 01 Condition: Fair Clinical Impression: Gastritis - Discharge Information *PRESCRIPTION DRUG MONITORING PROGRAM REVIEWED*: No *COPY OF PRESCRIPTION DRUG MONITORING REPORT IN PATIENT LISSETT: No Prescriptions: Famotidine [Pepcid] 40 mg PO DAILY #14 tablet Instructions: Gastritis, Adult, [id number], Viral Gastroenteritis, Adult, [id number] Referrals: PCP,None [Primary Care Provider] - Forms: ED Department Discharge Additional Instructions: Your eval today on an emergent basis. At this time I do believe you are experiencing inflammation in the stomach lining. I would like you to take famotidine 40 mg at bedtime for the next 2 weeks. I would like you to follow-up with your primary care physician within 1 week. If you have any new or worsening symptoms please return to the emergency department. [facility] - [facility] [address] [place] [address] [facility] [address] [place] [address] The patient is informed of any results of their evaluation and diagnostic workup and all questions are answered. They are given discharge instructions and return precautions. The patient is stable for discharge. The patient states they understand and agree with the plan and that they will return if their symptoms get worse or if they have any new concerns. The following information is given to patients seen in the emergency department who are being discharged to home. This information is to outline your options for follow-up care. We provide all patients seen in our emergency department with a follow-up referral. The need for follow-up, as well as the timing and circumstances, are variable depending upon the specifics of your emergency department visit. If you don't have a primary care physician on staff, we will provide you with a referral. We always advise you to contact your personal physician following an emergency department visit to inform them of the circumstance of the visit and for follow-up with them and/or the need for any referrals to a consulting specialist. The emergency department will also refer you to a specialist when appropriate. This referral assures that you have the opportunity for follow-up care with a specialist. All of these measure are taken in an effort to provide you with optimal care, which includes your follow-up. Under all circumstances we always encourage you to contact your private physician who remains a resource for coordinating your care. When calling for follow-up care, please make the office aware that this follow-up is from your recent emergency room visit. If for any reason you are refused follow-up, please contact the [facility] Emergency Department at and asked to speak to the emergency department charge nurse. Sepsis Event Note (ED) - Evaluation Sepsis Screening Result: No Definite Risk
== END 2021-01-05 12:25 | disposition home or self-care (01) ==
LOC: MW.ED 09:23
DX: K29.70 Gastritis, unspecified, without bleeding (principal); E66.9 Obesity, unspecified; Z68.32 Body mass index [BMI] 32.0-32.9, adult; Z91.030 Bee allergy status; Z79.899 Other long term (current) drug therapy
CPT/HCPCS: 80053; 81001; 81025; 83690; 85025; 99284; A9270; J7121; 99283

== ENCOUNTER 2021-10-13 18:56 | Emergency (ER) | payer MEDICAID ==
[2021-10-13 20:48] LABS: CORONAVIRUS COVID-19 NAA POSITIVE (NEGATIVE); INFLUENZA A NAA NEGATIVE (NEGATIVE); INFLUENZA B NAA NEGATIVE (NEGATIVE)
--- NOTE | 2021-10-13 21:36 | EDM.PDOC ---
ED HPI GENERAL MEDICAL PROBLEM - General Chief Complaint: ENT Problem Stated Complaint: POSSIBLE EAR INFECTION Time Seen by Provider: 10/13/21 20:50 Source of Information: Reports: Patient History Limitations: Reports: No Limitations - History of Present Illness INITIAL COMMENTS - FREE TEXT/NARRATIVE: Patient presents reporting a 24-hour history of runny nose, headache, body ac hes, cough, ear fullness, fever up to 101. No vomiting, sore throat, diarrhea, breathing problems. Eating and drinking fine. She is otherwise healthy without chronic medical problems and takes no medications. She does not smoke. She is not currently sexually active. She did not have a Covid vaccine or a flu vaccine. Left Neck Pain Score (Numeric/FACES): 5 Bilateral Ear Pain Score (Numeric/FACES): 4 - Related Data Allergies Allergy/AdvReac Type Severity Reaction Status Date / Time bee pollen Allergy Swelling Verified 10/13/21 20:00 Home Meds: Home Meds . [No Known Home Meds] 10/13/21 [History] Past Medical History Cardiovascular History: Reports: Hypertension, Other (See Below) Other Cardiovascular History: Hypertension with Respiratory History: Reports: Sleep Apnea Other Respiratory History: Undiagnosed Sleep Apnea BEAD TRIMMER History: Reports: , Other (See Below) Other BEAD TRIMMER History: Leep procedure 2017 Neurological History: Reports: Migraines Psychiatric History: Reports: Anxiety, Depression, OCD Endocrine/Metabolic History: Reports: Obesity/BMI 30+ Hematologic History: Reports: Anemia Oncologic (Cancer) History: Reports: Cervix, Other (See Below) Other Oncologic History: "precancerous cervical cancer" - Infectious Disease History Infectious Disease History: Reports: Chicken Pox, Human Papilloma Virus (HPV) - Past Surgical History Cardiovascular Surgical History: Reports: None Respiratory Surgical History: Reports: None Endocrine Surgical History: Reports: None Neurological Surgical History: Reports: None Oncologic Surgical History: Reports: Other (See Below) Other Oncologic Surgeries/Procedures: Leep procedure 2017 Social & Family History - Family History Cardiac: Reports: Heart Failure OBGYN: Reports: Endocrine/Metabolic: Reports: Diabetes, type II - Tobacco Use Tobacco Use Status *Q: Never Tobacco User - Caffeine Use Caffeine Use: Reports: Coffee, Energy Drinks, Soda, Tea - Recreational Drug Use Recreational Drug Use: No ED ROS ENT - Review of Systems Review Of Systems: Comprehensive ROS is negative, except as noted in HPI. ED EXAM, ENT - Physical Exam Exam: See Below Exam Limited By: No Limitations General Appearance: Alert, No Apparent Distress Ears: Normal External Exam, Normal TMs Nose: Normal Inspection Mouth/Throat: Normal Inspection, Normal Oropharynx Head: Atraumatic, Normocephalic Neck: Normal Inspection, Supple. No: Lymphadenopathy (L), Lymphadenopathy (R) Respiratory/Chest: No Respiratory Distress, Lungs Clear Cardiovascular: Normal Peripheral Pulses, Regular Rate, Rhythm, No Murmur Back: Normal Inspection Extremities: Normal Inspection Neurological: Alert, Oriented, Normal Cognition Psychiatric: Normal Affect, Normal Mood Skin: Warm, Dry, Intact, Normal Color, No Rash Lymphatic: No Adenopathy Course - Vital Signs Last Recorded V/S: Last Vital Signs Temp 36.9 C 10/13/21 20:01 Pulse 103 H 10/13/21 20:01 Resp 18 10/13/21 20:01 BP 149/98 H 10/13/21 20:01 Pulse Ox 99 10/13/21 20:01 - Orders/Labs/Meds Labs: Laboratory Tests 10/13/21 Range/Units 19:17 Influenza Type A RNA NEGATIVE (NEGATIVE) Influenza Type B RNA NEGATIVE (NEGATIVE) SARS-CoV-2 RNA ([facility]) POSITIVE H (NEGATIVE) Departure - Departure Time of Disposition: 21:38 Disposition: Home, Self-Care 01 Condition: Good Clinical Impression: COVID-19 - Discharge Information Referrals: Haley Marin PA [Primary Care Provider] - Additional Instructions: The following information is given to patients seen in the emergency department who are being discharged to home. This information is to outline your options for follow-up care. We provide all patients seen in our emergency department with a follow-up referral. The need for follow-up, as well as the timing and circumstances, are variable depending upon the specifics of your emergency department visit. If you don't have a primary care physician on staff, we will provide you with a referral. We always advise you to contact your personal physician following an e mergency department visit to inform them of the circumstance of the visit and for follow-up with them and/or the need for any referrals to a consulting specialist. The emergency department will also refer you to a specialist when appropriate. This referral assures that you have the opportunity for follow-up care with a specialist. All of these measure are taken in an effort to provide you with op timal care, which includes your follow-up. Under all circumstances we always encourage you to contact your private physician who remains a resource for coordinating your care. When calling for follow-up care, please make the office aware that this follow-up is from your recent emergency room visit. If for any reason you are refused follow-up, please contact the [facility] Emergency Department at and asked to speak to the emergency department charge nurse. 1. You have COVID-19. Quarantine per state health department guidelines. They will call you. 2. You will receive a call from the infusion center tomorrow to schedule a monoclonal antibodies infusion. 3. Turn promptly for breathing problems, vomiting and not keeping down oral fluids Sepsis Event Note (ED) - Focused Exam Vital Signs: Vital Signs Temp Pulse Resp BP Pulse Ox 10/13/21 20:01 36.9 C 103 H 18 149/98 H 99
== END 2021-10-13 21:42 | disposition home or self-care (01) ==
LOC: MW.ED 18:56
DX: U07.1 COVID-19 (principal); I10 Essential (primary) hypertension; E66.9 Obesity, unspecified; Z68.32 Body mass index [BMI] 32.0-32.9, adult; Z91.030 Bee allergy status
CPT/HCPCS: 0240U; 99283

== ENCOUNTER 2021-11-28 04:47 | Emergency (ER) | payer OTHER, MEDICAID ==
[2021-11-28 08:25] LABS: CORONAVIRUS COVID-19 NAA NEGATIVE (NEGATIVE); INFLUENZA A NAA NEGATIVE (NEGATIVE); INFLUENZA B NAA NEGATIVE (NEGATIVE)
== END 2021-11-28 09:05 | disposition home or self-care (01) ==
LOC: MW.ED 04:47
DX: J22 Unspecified acute lower respiratory infection (principal); I10 Essential (primary) hypertension; E66.9 Obesity, unspecified; Z91.030 Bee allergy status; Z68.32 Body mass index [BMI] 32.0-32.9, adult; Z20.822 Contact with and (suspected) exposure to COVID-19
CPT/HCPCS: 0240U; 71045; 99283